=== PATIENT | female | born 2000 | race Caucasian/White ===

== ENCOUNTER 2023-05-26 16:29 | Emergency (ER) | payer OTHER ==
[~2023-05-26] VITALS: Ht 167.6 cm; Wt 74.8 kg
[2023-05-26 16:42] VITALS: BP_SYST 113; PULSE 89; RESP 18; TEMP 98.3; O2SAT 98
[2023-05-26] MEDS ORDERED: KETOROLAC TROMETHAMINE 60 MG/2 ML VIAL IM ONE (17:15)
[2023-05-26] MEDS ORDERED: NAPR-690 PO (18:35)
[2023-05-26 19:19] VITALS: BP_SYST 113; PULSE 89; RESP 18; TEMP 98.3; O2SAT 98
== END 2023-05-26 19:19 | disposition home or self-care (01) ==
LOC: SED 16:29
DX: S13.4XXA Sprain of ligaments of cervical spine, initial encounter (principal); S33.5XXA Sprain of ligaments of lumbar spine, initial encounter; S09.90XA Unspecified injury of head, initial encounter; Z79.899 Other long term (current) drug therapy; V89.2XXA Person injured in unspecified motor-vehicle accident, traffic, initial encounter; Y93.89 Activity, other specified; Y92.89 Other specified places as the place of occurrence of the external cause; Y99.8 Other external cause status
CPT/HCPCS: 99285; 70450; 72040; 72072; 72100; 73110; 76376; 81025; 96372; J1885